=== PATIENT | female | born 1975 | race Caucasian/White ===

== ENCOUNTER 2017-02-02 22:13 | Emergency (ER) | payer MEDICAID ==
[2017-02-02 22:31] VITALS: RESP 20
[2017-02-02 22:59] LABS: RBC URINE 377 /hpf (0-3); URINE BACTERIA FEW (<OCC); URINE BILIRUBIN NEGATIVE (NEGATIVE); URINE BLOOD 3+ (NEGATIVE); URINE COLOR Yellow (YELLOW); URINE GLUCOSE (UA) NORMAL (Normal); URINE KETONE NEGATIVE (NEGATIVE); URINE PROTEIN 1+ mg/dL (NEGATIVE); URINE UROBILINOGEN NORMAL mg/dL (0.2-1.0); WBC URINE 15 /hpf (0-5)
[2017-02-02 23:00] LABS: URINE LEUKOCYTE ESTERASE 1+ Leu/uL (Negative)
[2017-02-02 23:22] LABS: BASO # 0.1 K/uL (0.0-0.2); BASO % 0.7 % (0.0-2.0); EOS # 0.2 K/uL (0.0-0.7); EOS % 1.9 % (0.0-4.0); HEMATOCRIT 41.1 % (34.0-47.0); LYMPH # 3.2 K/uL (1.0-4.3); LYMPH % 33.5 % (20.0-40.0); MEAN CELL VOLUME 89.7 fL (81.0-99.0); MEAN CORPUSCULAR HEMOGLOBIN 29.2 pg (27.0-31.0); MEAN CORPUSCULAR HGB CONC 32.5 g/dL (33.0-37.0); MEAN PLATELET VOLUME 9.2 fL (7.2-11.7); MONO # 0.8 K/uL (0.0-0.8); MONO % 7.9 % (0.0-10.0); RED CELL DISTRIBUTION WIDTH 13.3 % (11.5-14.5); WHITE BLOOD COUNT 9.6 K/uL (4.8-10.8)
[2017-02-02 23:37] LABS: ALB/GLOB RATIO 1.2 (1.0-2.1); ALKALINE PHOSPHATASE 48 U/L (38-126); ALT/SGPT 32 U/L (9-52); AST/SGOT 21 U/L (14-36); BILIRUBIN,TOTAL 0.5 mg/dL (0.2-1.3); BLOOD UREA NITROGEN 14 mg/dL (7-17); CALCIUM 8.1 mg/dl (8.6-10.4); CARBON DIOXIDE 26 mmol/L (22-30); CHLORIDE 100 mmol/L (98-107); GFR AFRICAN-AMERICAN > 60; GLUCOSE,RANDOM 96 mg/dL (65-105); POTASSIUM 4.1 mmol/L (3.6-5.2); SODIUM 140 mmol/L (132-148); TOTAL PROTEIN 7.3 g/dL (6.3-8.3)
--- NOTE | 2017-02-02 23:40 | C.PDOC ---
History Of Present Illness Patient is a 41 y/o female who presents to the ED with a complaint of epigastric pain s/p eating rice and potato salad for dinner 2 hours prior. Patient described pain as sharp and stabbing, radiating to the right side of the back. Denies fever, diarrhea, nausea, or vomiting. Denies any past medical problems or any similar episodes in the past. No other physical complaints at this time. 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) Current Symptoms Are (Timing): Still Present Context: Food (s/p eating dinner) Location Of Pain/Discomfort: Epigastric Radiation Of Pain To:: Back (right side) Quality Of Discomfort: Sharp, Stabbing Associated Symptoms: denies: Fever, Nausea, Vomiting, Diarrhea Recent travel outside of the [place]: No Past Medical History Reviewed: Historical Data, Nursing Documentation, Vital Signs Vital Signs: Last Vital Signs Temp 97.7 F 02/02/17 22:27 Pulse 67 02/02/17 22:27 Resp 20 02/02/17 22:27 BP 146/90 02/02/17 22:27 Pulse Ox 97 02/02/17 23:44 - Medical History PMH: No Chronic Diseases Surgical History: No Surg Hx Family History: States: No Known Family Hx - Social History Hx Alcohol Use: No Hx Substance Use: No - Immunization History Hx Tetanus Toxoid Vaccination: No Hx Influenza Vaccination: No Hx Pneumococcal Vaccination: No Review Of Systems Constitutional: Negative for: Fever Gastrointestinal: Positive for: Abdominal Pain (epigastric). Negative for: Nausea, Vomiting, Diarrhea Musculoskeletal: Positive for: Back Pain (epigastric pain radiates to right side of back) Physical Exam - Physical Exam Appears: Well, Non-toxic Skin: Normal Color, Warm, Dry Head: Atraumatic, Normacephalic Oral Mucosa: Moist Cardiovascular: Rhythm Regular, No Murmur Respiratory: Normal Breath Sounds, No Rhonchi, No Stridor, No Wheezing Gastrointestinal/Abdominal: Bowel Sounds (quiet), Soft, Tenderness (epigastric region), Guarding, No Rebound Neurological/Psych: Oriented x3, Normal Speech, Normal Cognition ED Course And Treatment - Laboratory Results Result Diagrams: 02/02/17 23:14 02/02/17 23:14 Lab Interpretation: Normal ECG: Interpreted By Ga ECG Rhythm: Sinus Rhythm ECG Interpretation: Normal O2 Sat by Pulse Oximetry: 97 (room air) Pulse Ox Interpretation: Normal - CT Scan/US Abdominal ultrasound Other Rad Studies (CT/US): Read By Radiologist, Radiology Report Reviewed CT/US Interpretation: Accession No. : [id number]. Patient Name / ID : MCKAY Spring / [id number]. Exam Date : 02/02/2017 23:08:12 ( Approved ). Study Comment : Sex / Age : F / 41Y. Creator : CHERELLE ZAMBRANO. Dictator : Firer Kiln : Wildland Fire Operations Specialist : CHERELLE ZAMBRANO. Approver2 : Report Date : 02/03 00:24:00. My Comment : . [facility] Division of Radiology. [address] [place] [address]. Tel. no. . . . Patient Name: COLTON BASHIR . Pt. Address: [address] [place] [address] Rec #: [id number]. [place] [address]: Mackenzie Loo MD. Pt Order Location: [facility] : 1975 Female Age: 41 Order #: [id number]. Reason for exam: epigastric abdominal pain. . . . . . Ultrasound. . . ABDOMEN COMPLETE Exam Date: . . This imaging exam was performed at [facility]. EXAM: US Abdomen Complete. . CLINICAL HISTORY: 41 years old, female; Pain; Abdominal pain; Epigastric; Additional info: Epigastric abdominal pain. . TECHNIQUE: Real-time ultrasound of the abdomen (complete) with image documentation. . COMPARISON: No relevant prior studies available. . . FINDINGS: Liver: The liver is unremarkable in size measuring 13 cm in longitudinal. dimension but increased in echogenicity suggesting fatty infiltration. No. intrahepatic bile duct dilation. Gallbladder: Multiple stones are identified within the gallbladder, which is. otherwise unremarkable. Common bile duct: No stones. No dilation, measuring 3 mm. Pancreas: Visualization of the pancreas is limited by overlying bowel gas. Right kidney: Unremarkable echogenicity and size measuring 9.7 x 5.9 x 4.6. cm. No hydronephrosis. Left Kidney: Unremarkable in echogenicity and size measuring 8.7 x 4.9 x 4.6. cm. No hydronephrosis. Spleen: Unremarkable in echogenicity and size measuring 8 cm in longitudinal. dimension. Aorta: Limited visualization secondary to overlying bowel gas. Inferior vena cava: patent. . IMPRESSION: Fatty infiltration of the liver. Cholelithiasis, without sonographic evidence of cholecystitis. Limited evaluation of the pancreas, secondary to overlying bowel gas. Otherwise, unremarkable sonographic evaluation of the abdomen, as detailed. above. . Dictated By: Cherelle Zambrano MD. Dictated Date/Time: 23. Signed By: Cherelle Zambrano MD. Date Signed: 02/03/1723. Transcribed By: [facility]. Transcribe Date/Time: 02/03/1723. MARY/VENKAT Reevaluation Time: 00:31 Reassessment Condition: Improved (After IV morphine) Medical Decision Making Medical Decision Making: Plan: * Morphine * US abdomen Disposition Counseled Patient/Family Regarding: Studies Performed, Diagnosis, Need For Followup, Rx Given - Disposition Referrals: Cielo Zelaya [Staff Provider] - Disposition: HOME/ ROUTINE Disposition Time: 00:31 Condition: IMPROVED Additional Instructions: Keep your diet bland and avoid fatty foods. Prescriptions: Dicyclomine [Bentyl] 20 mg PO QID PRN #20 tab PRN Reason: Pain, Moderate (4-7) Instructions: Biliary Colic (ED), Gallstones (ED) Forms: [employer] (Yoruba) - Clinical Impression Clinical Impression: Biliary colic - Scribe Statement The provider has reviewed the documentation as recorded by the Scribe Yu Miller All medical record entries made by the Scribe were at my direction and personally dictated by me. I have reviewed the chart and agree that the record accurately reflects my personal performance of the history, physical exam, medical decision making, and the department course for this patient. I have also personally directed, reviewed, and agree with the discharge instructions and disposition.
--- NOTE | 2017-02-03 00:25 | US ---
EXAM: US Abdomen Complete CLINICAL HISTORY: 41 years old, female; Pain; Abdominal pain; Epigastric; Additional info: Epigastric abdominal pain TECHNIQUE: Real-time ultrasound of the abdomen (complete) with image documentation. COMPARISON: No relevant prior studies available. FINDINGS: Liver: The liver is unremarkable in size measuring 13 cm in longitudinal dimension but increased in echogenicity suggesting fatty infiltration. No intrahepatic bile duct dilation. Gallbladder: Multiple stones are identified within the gallbladder, which is otherwise unremarkable. Common bile duct: No stones. No dilation, measuring 3 mm. Pancreas: Visualization of the pancreas is limited by overlying bowel gas. Right kidney: Unremarkable echogenicity and size measuring 9.7 x 5.9 x 4.6 cm. No hydronephrosis. Left Kidney: Unremarkable in echogenicity and size measuring 8.7 x 4.9 x 4.6 cm. No hydronephrosis. Spleen: Unremarkable in echogenicity and size measuring 8 cm in longitudinal dimension. Aorta: Limited visualization secondary to overlying bowel gas Inferior vena cava: patent. IMPRESSION: Fatty infiltration of the liver. Cholelithiasis, without sonographic evidence of cholecystitis. Limited evaluation of the pancreas, secondary to overlying bowel gas. Otherwise, unremarkable sonographic evaluation of the abdomen, as detailed above.
[2017-02-03 01:19] VITALS: BP 116/77; PULSE 69; TEMP 98.4; O2SAT 99
--- NOTE | 2017-02-03 21:45 | CARD ---
APPROVED REPORT EKG Measurement Heart [id number] <Conclusion> Normal sinus rhythm Normal ECG
== END 2017-02-03 01:19 | disposition home or self-care (01) ==
LOC: C.ER 22:13
DX: K80.50 Calculus of bile duct without cholangitis or cholecystitis without obstruction (principal)
CPT/HCPCS: 76700; 80053; 81001; 83690; 84703; 85025; 93005; 96374; 99284; J2270

== ENCOUNTER 2017-04-23 21:43 | Emergency (ER) | payer MEDICAID ==
[2017-04-23] MEDS ORDERED: Sodium Chloride 0.9% 1,000 ML IV ONE (22:27)
[2017-04-23] MEDS ORDERED: Sodium Chloride 0.9% 1,000 ML ONE (22:48)
[2017-04-23 23:30] LABS: HCG,QUALITATIVE URINE NEGATIVE (NEGATIVE)
[2017-04-23 23:32] LABS: BASO % 0.5 % (0.0-2.0); EOS # 0.2 K/uL (0.0-0.7); HEMOGLOBIN 13.3 g/dL (11.0-16.0); LYMPH # 2.8 K/uL (1.0-4.3); MONO # 0.7 K/uL (0.0-0.8); RBC 4.38 Mil/uL (3.80-5.20)
[2017-04-23 23:36] LABS: EOS % 2.6 % (0.0-4.0); LYMPH % 38.1 % (20.0-40.0); MEAN CELL VOLUME 89.6 fL (81.0-99.0); MEAN CORPUSCULAR HEMOGLOBIN 30.5 pg (27.0-31.0); MEAN PLATELET VOLUME 9.1 fL (7.2-11.7); MONO % 9.2 % (0.0-10.0); NEUT # 3.7 K/uL (1.8-7.0); NEUT % 49.6 % (50.0-75.0); RED CELL DISTRIBUTION WIDTH 12.8 % (11.5-14.5); WHITE BLOOD COUNT 7.4 K/uL (4.8-10.8)
[2017-04-23 23:38] LABS: SQUAMOUS EPITHIAL 1 /hpf (0-5); URINE BILIRUBIN NEGATIVE (NEGATIVE); URINE BLOOD 3+ (NEGATIVE); URINE CLARITY Hazy (Clear); URINE COLOR Yellow (YELLOW); URINE GLUCOSE (UA) NORMAL (Normal); URINE LEUKOCYTE ESTERASE TRACE Leu/uL (Negative); URINE NITRATE NEGATIVE (NEGATIVE); URINE PROTEIN NEGATIVE (NEGATIVE); URINE UROBILINOGEN NORMAL mg/dL (0.2-1.0)
[2017-04-23 23:41] LABS: ALB/GLOB RATIO 1.1 (1.0-2.1); ALBUMIN 3.9 g/dL (3.5-5.0); ALT/SGPT 27 U/L (9-52); AST/SGOT 29 U/L (14-36); BLOOD UREA NITROGEN 15 mg/dL (7-17); CALCIUM 8.8 mg/dl (8.6-10.4); GFR AFRICAN-AMERICAN > 60; GFR NON-AFRICAN AMERICAN > 60; LIPASE 114 U/L (23-300)
--- NOTE | 2017-04-23 23:48 | C.PDOC ---
History Of Present Illness 42 year old female presents to the ER with a complaint of 12 hours off epigastric discomfort. Patient reports having a similar episode in 01/21/17, she had a US which showed biliary stones without obstruction. Patient states she was not referred for elective surgery. Denies fever, chills, or vomiting. Time Seen by Provider: 04/23/17 22:23 Chief Complaint (Nursing): Abdominal Pain History Per: Patient History/Exam Limitations: no limitations Onset/Duration Of Symptoms: Hrs Current Symptoms Are (Timing): Still Present Location Of Pain/Discomfort: Epigastric Quality Of Discomfort: Unable To Describe Associated Symptoms: denies: Fever, Chills, Vomiting Exacerbating Factors: None Alleviating Factors: None Recent travel outside of the [place]: No Past Medical History Reviewed: Historical Data, Nursing Documentation, Vital Signs Vital Signs: Last Vital Signs Temp 98.0 F 04/24/17 00:22 Pulse 76 04/24/17 00:22 Resp 20 04/24/17 00:22 BP 136/72 04/24/17 00:22 Pulse Ox 100 04/24/17 00:22 Family History: States: Unknown Family Hx - Social History Hx Alcohol Use: No Hx Substance Use: No - Immunization History Hx Tetanus Toxoid Vaccination: No Hx Influenza Vaccination: No Hx Pneumococcal Vaccination: No Review Of Systems Constitutional: Negative for: Fever, Chills Cardiovascular: Negative for: Chest Pain Respiratory: Negative for: Shortness of Breath Gastrointestinal: Positive for: Abdominal Pain. Negative for: Vomiting Physical Exam - Physical Exam Appears: Non-toxic, No Acute Distress, Other (Obese female) Skin: Normal Color, Warm, Dry Head: Atraumatic, Normacephalic Eye(s): bilateral: Normal Inspection Oral Mucosa: Moist Chest: Symmetrical, No Tenderness Cardiovascular: Rhythm Regular Respiratory: Normal Breath Sounds, No Rales, No Rhonchi, No Wheezing Gastrointestinal/Abdominal: Soft, Tenderness (Epigastric), No Guarding, No Rebound Neurological/Psych: Oriented x3, Normal Speech ED Course And Treatment - Laboratory Results Result Diagrams: 04/23/17 23:24 04/23/17 23:24 Lab Interpretation: Normal (lft's wnl) Urine POC: Negative O2 Sat by Pulse Oximetry: 96 - Radiology CXR: Interpreted by Nd CXR Interpretation: Yes: No Acute Disease - Other Rad abd x 2 X-Ray: Interpreted by Me (+FOS) Medical Decision Making Medical Decision Making: constipation and NOT biliary colic (though biliary stones noted in GB US 01/21) PT may present for outpatient eval and consider elective colecystectomy with Surgery Sas Programmer Disposition Doctor Will See Patient In The: Office Counseled Patient/Family Regarding: Studies Performed, Diagnosis - Disposition Referrals: Cielo Zelaya [Staff Provider] - Bright Palafox MD [Staff Provider] - Disposition: HOME/ ROUTINE Disposition Time: 23:47 Condition: GOOD Additional Instructions: suyapa un purgante ahora (Citrato de Magnesio) y re-evalua canela molestia del abdomen despues de usar el katelynn 2-3 veces Sigue bandar dieta mas saludable- 7 verduras y frutas crudas diarios. Sigue con Dr. Ya para considerar evaluacion' por colico biliario Sigue con Dr Zelaya Prescriptions: Magnesium Citrate [[facility] Magnesium Citrate] 300 ml PO ONCE PRN #1 bottle PRN Reason: Constipation Instructions: Constipation, Adult (DC) Forms: [employer] (East Timorese) Print Language: SERBIAN - Clinical Impression Clinical Impression: Abdominal pain - Scribe Statement The provider has reviewed the documentation as recorded by the Scribe Rafy Osei All medical record entries made by the Scribe were at my direction and personally dictated by me. I have reviewed the chart and agree that the record accurately reflects my personal performance of the history, physical exam, medical decision making, and the department course for this patient. I have also personally directed, reviewed, and agree with the discharge instructions and disposition.
[2017-04-24 00:23] VITALS: BP 136/72; PULSE 76; RESP 20; TEMP 98
[2017-04-24 00:46] VITALS: O2SAT 96
--- NOTE | 2017-04-24 09:03 | RAD ---
PROCEDURE: Radiographs of the chest and abdomen (obstructive series) HISTORY: abd pain COMPARISON: No prior. TECHNIQUE: AP radiograph of the chest, with upright and supine radiographs of the abdomen. FINDINGS: CHEST: Lungs: Clear. Cardiovascular: Normal size heart. No pulmonary vascular congestion. Pleura: No pleural fluid. No pneumothorax. Other findings: None. ABDOMEN AND PELVIS: Bowel: [id number] constipation, otherwise grossly unremarkable bowel gas pattern. No evidence of mechanical obstruction. Free air: None. Bones: Unremarkable. Other findings: None. IMPRESSION: Gszv-cd-[id number] constipation, otherwise unremarkable radiographs of chest and abdomen. No evidence of mechanical bowel obstruction.
== END 2017-04-24 00:22 | disposition home or self-care (01) ==
LOC: C.ER 21:43
DX: R10.9 Unspecified abdominal pain (principal)
CPT/HCPCS: 74022; 80053; 81001; 83690; 84703; 85025; 96361; 96374; 99284; J1885; J7040